=== PATIENT | female | born 1965 | race Caucasian/White ===

== ENCOUNTER 2016-12-15 10:42 | Emergency (ER) | payer BC ==
[~2016-12-15] VITALS: Ht 165.1 cm; Wt 75.0 kg
[2016-12-15 10:46] VITALS: Ht 165.1 cm; Wt 75.0 kg
[2016-12-15] MEDS ORDERED: KETOROLAC 30 MG INJ IM STA (12:10)
--- NOTE | 2016-12-15 13:06 | RADRPT ---
PROCEDURE: XR Knee 3 Views. CLINICAL INDICATION: Right knee pain and trauma. TECHNIQUE: AP, lateral and oblique view of the right knee were obtained. The images reviewed on a PACS workstation. COMPARISON: None. FINDINGS: The osseous structures are intact. No destructive bony lesions are observed. Interosseous spaces a re normal. Soft tissues are unremarkable. IMPRESSION: No visualized traumatic injury. If there is high clinical suspicion for traumatic injury, further evaluation with CT should be consi dered. RPTAT: AA .Cr Bee MD, MD Date Time Electronically viewed and signed by .Cr Bee MD, on 12/15/2016 13:06 .P/
--- NOTE | 2016-12-15 13:07 | RADRPT ---
PROCEDURE: XR Femur 2 Views. CLINICAL INDICATION: Right leg pain and trauma. TECHNIQUE: AP and lateral views of the right femur were performed. COMPARISON: None. FINDINGS: The osseous structures are intact. No destructive bony lesions are identified. Interosseous spaces are normal. Soft tissues surrounding the femur are unremarkable. IMPRESSION: No visualized traumatic injury. If there is high clinical suspicion for traumatic injury, further evaluation with CT should be consi dered. RPTAT: AA .Cr Bee MD, MD Date Time Electronically viewed and signed by .Cr Bee MD, on 12/15/2016 13:06 .P/
--- NOTE | 2016-12-15 13:07 | RADRPT ---
PROCEDURE: XR Hip 2 Views. CLINICAL INDICATION: Right hip pain and trauma. TECHNIQUE: AP and frog lateral views of the right hip were performed. COMPARISON: None. FINDINGS: The osseous structures are intact. No destructive bony lesions are observed. Interosseous spaces a ppear normal. Flow clips are seen in the pelvis. IMPRESSION: No visualized traumatic injury. If there is high clinical suspicion for traumatic injury, further evaluation with CT should be consi dered. RPTAT: AA .Cr Bee MD, Date Time Electronically viewed and signed by .Cr Bee MD, on 12/15/2016 13:07 .P/
--- NOTE | 2016-12-15 13:41 | ERD ---
ER Documentation Chief Complaint Chief Complaint BIB RA FOR GLF C/O RT KNEE PAIN. HPI 51-year-old female presenting 6 hour status post mechanical fall with impact to the right knee. Patient denies loss of consciousness, injury to other areas of the body. Patient slipped in water. Patient has not taken any medications to relieve the symptoms at this point. Denies loss of motion, numbness, tingling or other rapidly progressive neurological deficits. There is no to been reviewed and are consistent with history given. Patient has no other complaints describes no other associated manifestations. ROS All systems reviewed and are negative except as per history of present illness. Allergies Allergies: Coded Allergies: No Known Allergy (Unverified , 12/15/16) PMhx/Soc History of Surgery: No Anesthesia Reaction: No Hx Neurological Disorder: No Hx Respiratory Disorders: No Hx Cardiac Disorders: Yes (HTN) Hx Psychiatric Problems: No Hx Miscellaneous Medical Probl: No Hx Alcohol Use: No Hx Substance Use: No Hx Tobacco Use: No Smoking Status: Never smoker Physical Exam Vitals Vital Signs Date Time Temp Pulse Resp B/P Pulse Ox O2 Delivery O2 Flow Rate FiO2 12/15/16 10:46 97.3 90 18 175/80 99 Physical Exam Const: Well-appearing overweight 50-year-old female in no acute distress sitting in the wheelchair on initial presentation. Head: Atraumatic Eyes: Normal Conjunctiva ENT: Normal External Ears, Nose and Mouth. Neck: Full range of motion..~ No meningismus. Resp: Clear to auscultation bilaterally Cardio: Regular rate and rhythm, no murmurs Abd: Soft, non tender, non distended. Normal bowel sounds Skin: No petechiae or rashes Back: No midline or flank tenderness Ext: Tenderness of the right knee diffusely. Mild tenderness of the right hip. Limited range of motion secondary to pain. Passive range of motion intact. Neurovascularly intact distal to the injured area. Dorsalis pedis and posterior tibial pulses 2+ bilaterally. Cap refill less than 2 seconds. Neur: Awake and alert Psych: Normal Mood and Affect Results 24 hrs Current Medications Medications (Trade) Dose Ordered Sig/Jamey Route PRN Reason Start Time Stop Time Status Last Admin Dose Admin Ketorolac Tromethamine (Toradol) 30 mg ONCE STAT IM 12/15/16 12:10 12/15/16 12:13 DC 12/15/16 12:21 Procedures/MDM Overweight 51-year-old female presenting 6 hours status post mechanical fall with impact to the right knee as described in history and physical examination. Patient has not taken any medications. Patient is given a shot of Toradol 50 mg IM in the emergency department with adequate relief of symptoms. X-ray of the affected site the femur and the right hip was obtained, read by the radiologist, given the following impression: No acute fracture dislocation, CT indicated if clinical suspicion of occult fracture. I have no suspicion for occult fracture, bony pathology or neurovascular compromise at this time. Most likely diagnosis is contusion of right knee. Patient will be discharged with recommendation for [id number] NSAIDs. I have spoke with the patient regarding their condition and future management. They have verbally responded that they understand their status and treatment plan. The patients vitals are stable, and their current condition is appropriate for discharge. The patient will be given discharge instructions with return precautions. Departure Diagnosis: Primary Impression: Knee injury Encounter type: initial encounter Laterality: right Qualified Code: S89.91XA - Injury of right knee, initial encounter Additional Impression: Knee pain Chronicity: acute Laterality: right Qualified Code: M25.561 - Acute pain of right knee Condition: Stable Patient Instructions: Contusion, Lower Extremity Additional Instructions: Follow up with your PCP within the next 1-3 days for a more thorough evaluation and a possible referral to a specialist. Return the the emergency department immediately if symptoms worsen or change. If you have any questions regarding medications, ask your pharmacist or us before you leave. If any adverse reactions occur while taking your medications, discontinue the treatment and return to the emergency department immediately. Take your medications as directed, and complete the entire course of treatment. SAMANTHA RAY PA-C Dec 15, 2016 13:41
== END 2016-12-15 13:38 | disposition home or self-care (01) ==
LOC: FTE 10:42
DX: S89.91XA Unspecified injury of right lower leg, initial encounter (principal); I10 Essential (primary) hypertension; W18.39XA Other fall on same level, initial encounter; Y92.9 Unspecified place or not applicable
CPT/HCPCS: 73510; 73550; 73562; 96372; 99284; J1885